=== PATIENT | male | born 1960 | race Caucasian/White ===

== ENCOUNTER 2018-09-07 11:43 | Inpatient (IN) | payer OTHER ==
[2018-09-07 12:51] VITALS: BMI 41.6
--- NOTE | 2018-09-07 16:14 | HP ---
CIWA Score Nausea/Vomitin-No Nausea/No Vomiting Muscle Tremors: 3 Anxiety: 3 Agitation: 4-Moderately Restless Paroxysmal Sweats: No Perspiration Orientation: 1-Uncertain about Date Tacttile Disturbances: 0-None Auditory Disturbances: 0-None Visual Disturbances: 0-None Headache: 3-Moderate CIWA-Ar Total Score: 14 - Admission Criteria OASAS Guidelines: Admission for Medically Managed Detox: Requires at least one of the followin. CIWA greater than 12 2. Seizures within the past 24 hours 3. Delirium tremens within the past 24 hours 4. Hallucinations within the past 24 hours 5. Acute intervention needed for co occurring medical disorder 6. Acute intervention needed for co occurring psychiatric disorder 7. Severe withdrawal that cannot be handled at a lower level of care (continued vomiting, continued diarrhea, abnormal vital signs) requiring intravenous medication and/or fluids 8. Admission ROS [facility] Chief Complaint: ETOH WITHDRAWAL SYMPTOMS/ CRACK COCAINE DEPENDENCE. History of Present Illness: PATIENT PRESENTS FOR DETOX FROM ETOH AND COCAINE DEPENDENCE. PATIENT STARTED DRINKING AT AGE 13. DRINKS 8 18 OUNCES OF BEER DAILY. LAST DRINK EARLY THIS AFTERNOON. PATIENT ALSO SMOKES ONE GRAM OF CRACK/COCAINE. LAST TIME HE SMOKED WAS 5 DAYS AGO. PATIENT DENIES HX SEIZURES, BLACKOUTS AND FALLS. PATIENT ATTEMPTED DETOX IN 1983. THIS IS PATIENT FIRST TIME ADMISSION TO [facility]. PATIENT PMH INCLUDES ANXIETY, PANIC ATTACKS, HTN, OBESITY, PSORIASIS (NON-CONTAGIOUS), COLORECTAL CANCER ( 2 YEARS AGO) AND COLOSTOMY BAG. DENIES SI/HI AND SUICIDE ATTEMPTS. PATIENT STATES HE TAKES KLONIPIN AND OXYCODONE ONLY NEEDED. UDS NEGATIVE. PATIENT AWARE HE WILL NOT RECEIVE THESE MEDICATIONS ON UNIT AND IS IN AGREEMENT WITH PLAN OF CARE. Others' Prescriptions Patient Name: Hansel Sheets Date: 1960 Address: [place] [address] Sex: Male Rx Written Rx Dispensed Drug Quantity Days Supply Prescriber Name 08/01/2018 09/06/2018 clonazepam 1 mg tablet 90 30 TarleCan 07/28/2018 07/28/2018 oxycodone hcl 10 mg tablet 90 30 [place], Haydee 07/11/2018 07/26/2018 clonazepam 1 mg tablet 90 30 TarleCan 06/14/2018 06/15/2018 clonazepam 1 mg tablet 90 30 TarleCan 05/16/2018 05/17/2018 clonazepam 1 mg tablet 90 30 Tarle, Can 04/18/2018 04/19/2018 clonazepam 1 mg tablet 90 30 Tarle, Can 03/16/2018 03/22/2018 clonazepam 1 mg tablet 90 30 Tarle, Can 03/03/2018 03/09/2018 hydromorphone 2 mg tablet 30 30 Marsha Betts) 02/13/2018 02/22/2018 clonazepam 1 mg tablet 90 30 Tarle, Can Exam Limitations: No Limitations - Ebola screening Have you traveled outside of the country in the last 21 days: No Have you had contact with anyone from an Ebola affected area: No Have you been sick,other than usual withdrawal symptoms: No Do you have a fever: No - Review of Systems Constitutional: Night Sweats, Changes in sleep EENT: reports: Recent change in vision ([place]) Respiratory: reports: Cough (DRY COUGH) Cardiac: reports: No Symptoms Reported GI: reports: Nausea, Poor Fluid Intake, Other (COLOSTOMY BAG) : reports: No Symptoms Reported Musculoskeletal: reports: Back Pain, Joint Pain, Muscle Pain Integumentary: reports: Rash, Sweating, Other (PSORIASIS- GENERALIZED) Neuro: reports: Headache, Tremors, Unsteady Gait Endocrine: reports: [place] Hematology: reports: No Symptoms Reported Psychiatric: reports: Anxious, Depressed Patient History - Patient Medical History Hx Anemia: No Hx Asthma: No Hx Chronic Obstructive Pulmonary Disease (COPD): No Hx Cancer: Yes (COLORECTAL CANCER 2016) Hx Cardiac Disorders: No Hx Congestive Heart Failure: No Hx Hypertension: Yes (on meds.) Hx Hypercholesterolemia: No Hx Pacemaker: No HX Cerebrovascular Accident: No Hx Seizures: No Hx Dementia: No Hx Diabetes: No Hx Gastrointestinal Disorders: Yes (colorectal CA Pt has a colostomy since 2016) Hx Liver Disease: No Hx Genitourinary Disorders: No Hx Sexually Transmitted Disorders: No Hx Renal Disease (ESRD): No Hx Thyroid Disease: No Hx Human Immunodeficiency Virus (HIV): No (REFUSED TESTING) Hx Hepatitis C: No Hx Depression: Yes Hx Suicide Attempt: No Hx Bipolar Disorder: No Hx Schizophrenia: No - Patient Surgical History Past Surgical History: Yes Hx Abdominal Surgery: Yes (colon resection in 2015) Anesthesia Reaction: No - PPD History Previous Implant?: Yes Documented Results: Negative w/o proof Implanted On Prior [facility] Admission?: No PPD to be Administered?: Yes - Smoking Cessation Smoking history: Current every day smoker Have you smoked in the past 12 months: Yes Aproximately how many cigarettes per day: 20 Hx Chewing Tobacco Use: No Initiated information on smoking cessation: Yes 'Breaking Loose' booklet given: 09/07/18 - Substance & Tx. History Hx Alcohol Use: Yes Hx Substance Use: Yes Substance Use Type: Alcohol, Cocaine Hx Substance Use Treatment: Yes - Substances Abused Alcohol Route: Oral Frequency: Daily Amount used: 10-12 18 oz beers Age of first use: 13 Date of Last Use: 09/07/18 Crack Route: Smoking Frequency: Daily Amount used: 1 gram Age of first use: 43 Date of Last Use: 08/31/18 Family Disease History - Family Disease History Family History: Denies Admission Physical Exam [facility] - Vital Signs Vital Signs: Vital Signs - 24 hr 09/07/18 12:49 Temperature 96.8 F L Pulse Rate 78 Respiratory 18 Rate Blood Pressure 139/79 - Physical General Appearance: Yes: Disheveled, Obese, Tremorous, Sweating, Anxious HEENTM: Yes: EOMI, Hearing grossly Normal, Normocephalic, Normal Voice, RYAN, Pharynx Normal Respiratory: Yes: Chest Non-Tender, Lungs Clear, Normal Breath Sounds, No Respiratory Distress, No Accessory Muscle Use Neck: Yes: No masses,lesions,Nodules, Supple Breast: Yes: Breast Exam Deferred Cardiology: Yes: Regular Rhythm, Regular Rate, S1, S2 Abdominal: Yes: Normal Bowel Sounds, Non Tender, Soft, Other (+ COLOSTOMY BAG) Genitourinary: Yes: Within Normal Limits Back: Yes: Normal Inspection, Muscle Spasm Musculoskeletal: Yes: full range of Motion, Back pain, Muscle Pain, Other ( AMBULATES WITH CANE) Extremities: Yes: Normal Range of Motion, Non-Tender, Tremors Neurological: Yes: pipeline engineer II-XII NML intact, Alert, Normal Response, Other (ANXIOUS ) Integumentary: Yes: Warm, Erythema, Moist, Rash Lymphatic: Yes: Within Normal Limits - Diagnostic (1) Anxiety Current Visit: Yes Status: Chronic (2) Alcohol dependence with uncomplicated withdrawal Current Visit: Yes Status: Acute (3) Colostomy status Current Visit: Yes Status: Chronic (4) Obesity Current Visit: Yes Status: Chronic Qualifiers: Obesity type: unspecified obesity type (5) Psoriasis Current Visit: Yes Status: Chronic (6) HTN (hypertension) Current Visit: Yes Status: Chronic Qualifiers: Hypertension type: essential hypertension Qualified Code(s): I10 - Essential (primary) hypertension Cleared for Admission [facility] - Detox or Rehab [facility] Level of Care: Medically Managed Detox Regimen/Protocol: Librium S Breath Alcohol Content Breath Alcohol Content: 0.019 Urine Drug Screen - Results Drug Screen Negative: Yes
[2018-09-07] MEDS ORDERED: MENTHOL/PHENOL 1 EACH UD MM PRN (17:04)
[2018-09-07] MEDS ORDERED: NICOTINE POLACRILEX 2 MG GUM BC PRN (17:04)
[2018-09-07] MEDS ORDERED: MAGNESIUM CITRATE 300 ML BOTTLE PO PRN (17:04)
[2018-09-07] MEDS ORDERED: ACETAMINOPHEN 325 MG TABLET (FP) PO PRN (17:04)
[2018-09-07] MEDS ORDERED: hydrOXYzine PAMOATE 50 MG CAPSULE (FP) PO PRN (17:04)
[2018-09-07] MEDS ORDERED: guaiFENesin/D-METHORPHAN HB 10 ML UNIT-DOSE CUPS PO PRN (17:04)
[2018-09-07] MEDS ORDERED: MAG HYDROX/AL HYDROX/SIMETH 30 ML UNIT-DOSE CUP PO PRN (17:04)
[2018-09-07] MEDS ORDERED: P-EPHED 60MG/TRIPROLIDI 2.5MG TABLET PO PRN (17:04)
[2018-09-07] MEDS ORDERED: LOPERAMIDE HCL 2 MG CAPSULE PO PRN (17:04)
[2018-09-07] MEDS ORDERED: MAGNESIUM HYDROX 2400MG/30ML ORAL SUSPENSION 30 ML CUP PO PRN (17:04)
[2018-09-07] MEDS: chlordiazePOXIDE HCL 25 MG CAPSULE PO PRN (19:09)
[2018-09-07] MEDS ORDERED: MELATONIN 5 MG TABLETS PO PRN (22:00)
[2018-09-07] MEDS ORDERED: HYDROCORTISONE 0.5% TOPICAL OINTMENT TUBE TP SCH (22:00)
[2018-09-07 22:24] LABS: URINE APPEARANCE CLEAR; URINE BILIRUBIN NEGATIVE (<2.0 mg/dL); URINE COLOR LTYELLOW; URINE GLUCOSE (UA) NEGATIVE (NEGATIVE); URINE KETONE NEGATIVE (NEGATIVE); URINE LEUK ESTERASE NEGATIVE (NEGATIVE); URINE NITRITE NEGATIVE (NEGATIVE); URINE PROTEIN NEGATIVE (NEGATIVE); URINE UROBILINOGEN NEGATIVE mg/dL (0.2-1.0)
[2018-09-07] MEDS: THIAMINE HCL 100 MG TABLET (FP) PO SCH (22:40)
[2018-09-07] MEDS: chlordiazePOXIDE HCL 25 MG CAPSULE PO SCH (22:40)
[2018-09-08] MEDS: chlordiazePOXIDE HCL 25 MG CAPSULE PO SCH ×4 (05:55→22:19)
--- NOTE | 2018-09-08 08:55 | EKG ---
Test Reason : Blood Pressure : / mmHG Vent. Rate : 083 BPM Atrial Rate : 083 BPM P-R Int : 162 ms QRS Dur : 102 ms QT Int : 376 ms P-R-T Axes : 033 -28 017 degrees QTc Int : 441 ms NORMAL SINUS RHYTHM POSSIBLE ANTERIOR INFARCT , AGE UNDETERMINED ABNORMAL ECG NO PREVIOUS ECGS AVAILABLE Confirmed by TIFFANY CACERES MD ([id number]) on 09/08/2018 8:55:08 AM Referred By: Confirmed By:TIFFANY CACERES MD
[2018-09-08 10:06] LABS: HEMATOCRIT 43.9 % (35.4-49); HEMOGLOBIN 14.6 GM/dL (11.7-16.9); MCH 31.2 pg (25.7-33.7); MCHC 33.2 g/dl (32.0-35.9); PLATELET COUNT 162 K/MM3 (134-434); RBC 4.67 M/mm3 (4.00-5.60); RDW 13.9 % (11.9-15.9); WHITE BLOOD COUNT 4.9 K/mm3 (4.0-10.0)
[2018-09-08] MEDS: HYDROCORTISONE 0.5% TOPICAL OINTMENT TUBE TP SCH ×2 (10:28→22:18)
[2018-09-08] MEDS: PRENATAL VITAMINS W/ FOLIC ACID TABLET (FP) PO SCH (10:29)
[2018-09-08] MEDS: NICOTINE 21 MG/24 HOURS TOPICAL PATCH TD SCH (10:31)
[2018-09-08 11:54] LABS: ALBUMIN 3.6 g/dl (3.4-5.0); ALK PHOS 110 U/L (45-117); ANION GAP 9 MMOL/L (8-16); BILIRUBIN,TOTAL 0.3 mg/dL (0.2-1); BLOOD UREA NITROGEN 15 mg/dL (7-18); CALCIUM 8.3 mg/dL (8.5-10.1); CHLORIDE 102 mmol/L (98-107); CO2 29 mmol/L (21-32); CREATININE 1.4 mg/dL (0.55-1.3); GLUCOSE,RANDOM 113 mg/dL (74-106); POTASSIUM 4.6 mmol/L (3.5-5.1); SGOT/AST 31 U/L (15-37); SODIUM 140 mmol/L (136-145); TOT PROT 7.2 g/dl (6.4-8.2)
[2018-09-08] MEDS: chlordiazePOXIDE HCL 25 MG CAPSULE PO PRN ×2 (12:37→19:27)
--- NOTE | 2018-09-08 13:48 | CONSULT ---
[facility] Psychiatric Consult - Data Date of interview: 09/08/18 Admission source: [facility] Identifying data: First admission to [facility] for this 57 y/o male seeking detoxification treatment, on , for cocaine (crack) and alcohol dependence. Patient is single, no children, domiciled, unemployed and supported on [facility] benefits. Substance Abuse History: Confirmed by the patient in this interview. Details in current [facility] report : Smoking history: Current every day smoker. Have you smoked in the past 12 months: Yes. Aproximately how many cigarettes per day: 20. Hx Chewing Tobacco Use: No. Initiated information on smoking cessation: Yes. 'Breaking Loose' booklet given: 09/07/18. - Substance & Tx. History. Hx Alcohol Use: Yes. Hx Substance Use: Yes. Substance Use Type: Alcohol, Cocaine. Hx Substance Use Treatment: Yes. - Substances Abused. Alcohol. Route: Oral. Frequency: Daily. Amount used: 10-12 18 oz beers. Age of first use: 13. Date of Last Use: 09/07/18. Crack. Route: Smoking. Frequency: Daily. Amount used: 1 gram. Age of first use: 43. Date of Last Use: 08/31/18 Medical History: Remarkable for treatment for colorectal cancer (resection of colon : carries a colostomy bag), hypertension, obesity, arthritis and psoriasis. Patient ambulates with a cane. Psychiatric History: Patient endorses a history of multiple psychiatric hospitalizations ([facility] in [facility], [facility], [facility] in [place], [place]). Diagnosed with Schizoaffective Disorder. Maintained on a regimen of clonazepam, valproate, risperdal, quetiapine, gabapentin and bupropion. Mr Sheets is followed by a private psychiatrist, Dr Can Salmon, in [place], [place]. Patient denies history of suicide attempts. Physical/Sexual Abuse/Trauma History: Patient denies. Additional Comment: Drug Screen is negative. Mental Status Exam - Mental Status Exam Alert and Oriented to: Time, Place, Person Cognitive Function: Good Patient Appearance: Unkempt, Disheveled (obese ; covered with disseminated lesions of psoriasis) Mood: Apprehensive, Hopeful Affect: Mood Congruent Patient Behavior: Talkative (good and clear historian), Appropriate, Cooperative Speech Pattern: Clear, Excessive Voice Loudness: Normal Thought Process: Goal Oriented Hallucinations: Denies Suicidal Ideation: Denies Homicidal Ideation: Denies Insight/Judgement: Fair Sleep: Well Appetite: Good Muscle strength/Tone: Normal Gait/Station: Other (walks with a limp ; uses a cane) Psychiatric Findings - Problem List ([place] 1, 2,3) (1) Alcohol dependence with uncomplicated withdrawal Current Visit: Yes Status: Acute (2) Nicotine dependence Current Visit: Yes Status: Chronic (3) Schizoaffective disorder Current Visit: Yes Status: Chronic Qualifiers: Schizoaffective disorder type: bipolar Qualified Code(s): F25.0 - Schizoaffective disorder, bipolar type Comment: As per self-report. On medications. (4) Anxiety disorder Current Visit: Yes Status: Acute Comment: As per self-report. On medications. (5) Substance induced mood disorder Current Visit: Yes Status: Acute - Initial Treatment Plan Initial Treatment Plan: Psychoeducation. Sleep hygiene. Detoxification. Psychotherapy (group, supportive). AA meetings. Relapse prevention measures are discussed with the patient. Medications reconciled : depakote 500 mg po bid + wellbutrin XL 150 mg po daily + risperdal 2 mg po hs (reduced) + gabapentin 300 mg po tid. Side effects/benefits of each drug are discussed with the patient. Mr Sheets is in agreement with this plan of care. Valproic acid level : pending. Will follow. Observation.
--- NOTE | 2018-09-08 14:25 | PN ---
S CIWA - CIWA Score Nausea/Vomitin Muscle Tremors: 4-Moderate,w/Arms Extend Anxiety: 4-Mod. Anxious/Guarded Agitation: 2 Paroxysmal Sweats: 3 Orientation: 0-Oriented Tacttile Disturbances: 1-Very Mild Itch/Numbness Auditory Disturbances: 0-None Visual Disturbances: 0-None Headache: 0-None Present CIWA-Ar Total Score: 16 BHS Progress Note (SOAP) Subjective: Interrupted sleep, weird dreams, sweating, headache Objective: 09/08/18 14:21 Last Vital Signs Temp Pulse Resp BP Pulse Ox 97.2 F L 86 20 124/77 09/08/18 06:46 09/08/18 06:46 09/08/18 06:46 09/08/18 06:46 Laboratory Tests 09/07/18 09/08/18 09/08/18 20:40 06:30 06:30 WBC 4.9 RBC 4.67 Hgb 14.6 Hct 43.9 MCV 94.0 MCH 31.2 MCHC 33.2 RDW 13.9 Plt Count 162 MPV 10.0 Sodium 140 Potassium 4.6 Chloride 102 Carbon Dioxide 29 Anion Gap 9 BUN 15 Creatinine 1.4 H Creat Clearance w eGFR 52.05 Random Glucose 113 H Calcium 8.3 L Total Bilirubin 0.3 AST 31 ALT TNP Alkaline Phosphatase 110 Total Protein 7.2 Albumin 3.6 Urine Color Ltyellow Urine Appearance Clear Urine pH 6.0 Ur Specific [place] 1.010 Urine Protein Negative Urine Glucose (UA) Negative Urine Ketones Negative Urine Blood Negative Urine Nitrite Negative Urine Bilirubin Negative Urine Urobilinogen Negative Ur Leukocyte Esterase Negative RPR Titer 09/08/18 06:30 WBC RBC Hgb Hct MCV MCH MCHC RDW Plt Count MPV Sodium Potassium Chloride Carbon Dioxide Anion Gap BUN Creatinine Creat Clearance w eGFR Random Glucose Calcium Total Bilirubin AST ALT Alkaline Phosphatase Total Protein Albumin Urine Color Urine Appearance Urine pH Ur Specific [place] Urine Protein Urine Glucose (UA) Urine Ketones Urine Blood Urine Nitrite Urine Bilirubin Urine Urobilinogen Ur Leukocyte Esterase RPR Titer Nonreactive Labs reviewed: serum creatinine 1.4, GFR 52.05 Assessment: 09/08/18 14:24 Withdrawal symptoms Noted with HAN Plan: Continue detox HAN: encouraged PO water intake, repeat serum creatinine and bun
[2018-09-08] MEDS: GABAPENTIN 300 MG CAPSULE (FP) PO SCH ×2 (15:08→22:18)
[2018-09-08] MEDS ORDERED: risperiDONE 3 MG TABLET PO SCH (22:00)
[2018-09-08] MEDS: THIAMINE HCL 100 MG TABLET (FP) PO SCH (22:18)
[2018-09-08] MEDS: DIVALPROEX NA *ER* EXTEND REL 500 MG TABLET.SA (FP) PO SCH (22:18)
[2018-09-08] MEDS: risperiDONE 2 MG TABLET PO SCH (22:19)
[2018-09-09] MEDS: chlordiazePOXIDE HCL 25 MG CAPSULE PO PRN ×2 (03:04→13:50)
[2018-09-09] MEDS: GABAPENTIN 300 MG CAPSULE (FP) PO SCH ×3 (05:36→22:37)
[2018-09-09] MEDS: chlordiazePOXIDE HCL 25 MG CAPSULE PO SCH ×3 (05:37→17:07)
[2018-09-09] MEDS: HYDROCORTISONE 0.5% TOPICAL OINTMENT TUBE TP SCH ×2 (10:31→22:38)
[2018-09-09] MEDS: NICOTINE 21 MG/24 HOURS TOPICAL PATCH TD SCH (10:31)
[2018-09-09] MEDS: PRENATAL VITAMINS W/ FOLIC ACID TABLET (FP) PO SCH (10:32)
[2018-09-09] MEDS: DIVALPROEX NA *ER* EXTEND REL 500 MG TABLET.SA (FP) PO SCH ×2 (10:32→22:37)
[2018-09-09 11:05] LABS: CREATININE 1.1 mg/dL (0.55-1.3)
--- NOTE | 2018-09-09 13:02 | PN ---
[facility] CIWA - CIWA Score Nausea/Vomitin-No Nausea/No Vomiting Muscle Tremors: None Anxiety: 3 Agitation: 0-Normal Activity Paroxysmal Sweats: 3 Orientation: 0-Oriented Tacttile Disturbances: 3-Moderate Itch/Numb/Burn Auditory Disturbances: 0-None Visual Disturbances: 0-None Headache: 0-None Present CIWA-Ar Total Score: 9 S Progress Note (SOAP) Subjective: PATIENT C/O ITCHING BURNING OF SKIN/FEET, ANXIETY, INTERRUPTED SLEEP AND SWEATING. Objective: 09/09/18 13:00 Vital Signs Temperature 98.6 F 09/09/18 09:09 Pulse Rate 80 09/09/18 09:09 Respiratory Rate 18 09/09/18 09:09 Blood Pressure 113/68 09/09/18 09:09 O2 Sat by Pulse Oximetry (%) Laboratory Tests 09/07/18 09/08/18 09/08/18 20:40 06:30 06:30 WBC 4.9 RBC 4.67 Hgb 14.6 Hct 43.9 MCV 94.0 MCH 31.2 MCHC 33.2 RDW 13.9 Plt Count 162 MPV 10.0 Sodium 140 Potassium 4.6 Chloride 102 Carbon Dioxide 29 Anion Gap 9 BUN 15 Creatinine 1.4 H Creat Clearance w eGFR 52.05 Random Glucose 113 H Calcium 8.3 L Total Bilirubin 0.3 AST 31 ALT TNP Alkaline Phosphatase 110 Total Protein 7.2 Albumin 3.6 Urine Color Ltyellow Urine Appearance Clear Urine pH 6.0 Ur Specific [place] 1.010 Urine Protein Negative Urine Glucose (UA) Negative Urine Ketones Negative Urine Blood Negative Urine Nitrite Negative Urine Bilirubin Negative Urine Urobilinogen Negative Ur Leukocyte Esterase Negative Valproic Acid RPR Titer 09/08/18 09/09/18 09/09/18 06:30 08:00 08:00 WBC RBC Hgb Hct MCV MCH MCHC RDW Plt Count MPV Sodium Potassium Chloride Carbon Dioxide Anion Gap BUN 13 Creatinine 1.1 Creat Clearance w eGFR Random Glucose Calcium Total Bilirubin AST ALT Alkaline Phosphatase Total Protein Albumin Urine Color Urine Appearance Urine pH Ur Specific [place] Urine Protein Urine Glucose (UA) Urine Ketones Urine Blood Urine Nitrite Urine Bilirubin Urine Urobilinogen Ur Leukocyte Esterase Valproic Acid 6.6 L RPR Titer Nonreactive PE: SKIN +PSORIASIS, WARM, MILD SWEATINESS ALERT AND ORIENTED X 3 EXT FULL ROM, AMB WITH CANE ANXIOUS Assessment: 09/09/18 13:01 WITHDRAWAL SX Plan: CONTINUE DETOX ENCOURAGE ORAL FLUIDS CONTINUE TO MONITOR CLINICALLY
--- NOTE | 2018-09-09 18:17 | PN ---
[facility] Progress Note Note: Psychiatry Attending's delayed note (follow-up) : Met with the patient,earlier, during daytime. At issue : dosage of medications. Mr Sudeep is requesting his " full dose " of seroquel. He authorized MD to contact his pharmacy in [facility]. Parts Remover called [facility] at [phone]. Spoke to pharmacist. List of medications as follows : Seroquel 25 mg po bid + 400 mg po hs Risperdal 3 mg po am + 4 mg po hs Depakote ER 500 mg po bid Gabapentin 300 mg po QID Inderal 10 mg po daily Klonopin 1 mg po tid Wellbutrin SR 150 mg po bid Most recent refills were picked up by patient. On 09/06/18. Confirmed by Mr Sheets in this session. In view of concomitant detoxification regimen, OVERSEDATION represents a significant concern. Will adopt a modified regimen as follows : seroquel 200 mg po hs (reduced). Will titrate if no sedation. risperdal 2 mg po bid (reduced) gabapentin 300 mg po tid wellbutrin XL 150 mg po daily depakote 500 mg po bid. Of note, VA level = 6.6 (09/09/18). Clear indication of NON-ADHERENCE. Will follow.
[2018-09-09] MEDS: risperiDONE 2 MG TABLET PO SCH (22:37)
[2018-09-09] MEDS: QUEtiapine FUMARATE 200 MG TABLET PO SCH (22:37)
[2018-09-09] MEDS: THIAMINE HCL 100 MG TABLET (FP) PO SCH (22:37)
[2018-09-09] MEDS: chlordiazePOXIDE 5 MG CAPSULE PO SCH (22:38)
[2018-09-09] MEDS: IBUPROFEN 400 MG TABLET (FP) PO PRN (22:40)
[2018-09-10] MEDS: GABAPENTIN 300 MG CAPSULE (FP) PO SCH ×3 (06:54→22:11)
[2018-09-10] MEDS: chlordiazePOXIDE 5 MG CAPSULE PO SCH ×3 (06:54→17:36)
[2018-09-10] MEDS ORDERED: IBUPROFEN 400 MG TABLET (FP) PO ONE (10:03)
[2018-09-10] MEDS: DIVALPROEX NA *ER* EXTEND REL 500 MG TABLET.SA (FP) PO SCH ×2 (10:34→22:10)
[2018-09-10] MEDS: NICOTINE 21 MG/24 HOURS TOPICAL PATCH TD SCH (10:34)
[2018-09-10] MEDS: HYDROCORTISONE 0.5% TOPICAL OINTMENT TUBE TP SCH ×2 (10:34→22:13)
[2018-09-10] MEDS: PRENATAL VITAMINS W/ FOLIC ACID TABLET (FP) PO SCH (10:34)
[2018-09-10] MEDS: chlordiazePOXIDE HCL 25 MG CAPSULE PO PRN (14:45)
--- NOTE | 2018-09-10 15:55 | PN ---
[facility] Progress Note (SOAP) Subjective: Headache (pain scale 7/10), interrupted sleep Objective: 09/10/18 15:54 Last Vital Signs Temp Pulse Resp BP Pulse Ox 97.4 F L 76 18 113/71 09/10/18 13:22 09/10/18 13:22 09/10/18 13:22 09/10/18 13:22 Laboratory Tests 09/07/18 09/08/18 09/08/18 20:40 06:30 06:30 WBC 4.9 RBC 4.67 Hgb 14.6 Hct 43.9 MCV 94.0 MCH 31.2 MCHC 33.2 RDW 13.9 Plt Count 162 MPV 10.0 Sodium 140 Potassium 4.6 Chloride 102 Carbon Dioxide 29 Anion Gap 9 BUN 15 Creatinine 1.4 H Creat Clearance w eGFR 52.05 Random Glucose 113 H Calcium 8.3 L Total Bilirubin 0.3 AST 31 ALT TNP Alkaline Phosphatase 110 Total Protein 7.2 Albumin 3.6 Urine Color Ltyellow Urine Appearance Clear Urine pH 6.0 Ur Specific [place] 1.010 Urine Protein Negative Urine Glucose (UA) Negative Urine Ketones Negative Urine Blood Negative Urine Nitrite Negative Urine Bilirubin Negative Urine Urobilinogen Negative Ur Leukocyte Esterase Negative Valproic Acid RPR Titer 09/08/18 09/09/18 09/09/18 06:30 08:00 08:00 WBC RBC Hgb Hct MCV MCH MCHC RDW Plt Count MPV Sodium Potassium Chloride Carbon Dioxide Anion Gap BUN 13 Creatinine 1.1 Creat Clearance w eGFR Random Glucose Calcium Total Bilirubin AST ALT Alkaline Phosphatase Total Protein Albumin Urine Color Urine Appearance Urine pH Ur Specific [place] Urine Protein Urine Glucose (UA) Urine Ketones Urine Blood Urine Nitrite Urine Bilirubin Urine Urobilinogen Ur Leukocyte Esterase Valproic Acid 6.6 L RPR Titer Nonreactive Labs reviewed Assessment: 09/10/18 15:54 Withdrawal symptoms Plan: Continue detox Encouraged PO water intake
[2018-09-10] MEDS: IBUPROFEN 400 MG TABLET (FP) PO PRN (18:13)
[2018-09-10] MEDS: THIAMINE HCL 100 MG TABLET (FP) PO SCH (22:10)
[2018-09-10] MEDS: chlordiazePOXIDE HCL 10 MG CAPSULE PO SCH (22:10)
[2018-09-10] MEDS: QUEtiapine FUMARATE 200 MG TABLET PO SCH (22:11)
[2018-09-10] MEDS: risperiDONE 2 MG TABLET PO SCH (22:11)
[2018-09-11] MEDS: chlordiazePOXIDE HCL 10 MG CAPSULE PO SCH ×2 (05:39→10:22)
[2018-09-11] MEDS: GABAPENTIN 300 MG CAPSULE (FP) PO SCH ×2 (05:39→14:17)
[2018-09-11] MEDS: DIVALPROEX NA *ER* EXTEND REL 500 MG TABLET.SA (FP) PO SCH (10:20)
[2018-09-11] MEDS: HYDROCORTISONE 0.5% TOPICAL OINTMENT TUBE TP SCH (10:20)
--- NOTE | 2018-09-11 10:20 | DS ---
[facility] Detox Discharge Summary Admission Date: 09/07/18 Discharge Date: 09/11/18 - History Present History: Alcohol Dependence Additional Comments: 57 years old male admitted on 09/07/18 for alcohol withdrawal sx completed alcohol detox regimen tolerated well - Physical Exam Results Vital Signs: Vital Signs Temperature 97.7 F 09/11/18 09:20 Pulse Rate 77 09/11/18 09:20 Respiratory Rate 18 09/11/18 09:20 Blood Pressure 91/56 L 09/11/18 09:20 O2 Sat by Pulse Oximetry (%) Pertinent Admission Physical Exam Findings: alcohol withdrawal sx Vital Signs Temperature 97.7 F 09/11/18 09:20 Pulse Rate 77 09/11/18 09:20 Respiratory Rate 18 09/11/18 09:20 Blood Pressure 91/56 L 09/11/18 09:20 O2 Sat by Pulse Oximetry (%) Laboratory Last Values WBC 4.9 K/mm3 (4.0-10.0) 09/08/18 06:30 RBC 4.67 M/mm3 (4.00-5.60) 09/08/18 06:30 Hgb 14.6 GM/dL (11.7-16.9) 09/08/18 06:30 Hct 43.9 % (35.4-49) 09/08/18 06:30 MCV 94.0 fl (80-96) 09/08/18 06:30 MCH 31.2 pg (25.7-33.7) 09/08/18 06:30 MCHC 33.2 g/dl (32.0-35.9) 09/08/18 06:30 RDW 13.9 % (11.9-15.9) 09/08/18 06:30 Plt Count 162 K/MM3 (134-434) 09/08/18 06:30 MPV 10.0 fl (7.5-11.1) 09/08/18 06:30 Sodium 140 mmol/L (136-145) 09/08/18 06:30 Potassium 4.6 mmol/L (3.5-5.1) 09/08/18 06:30 Chloride 102 mmol/L (98-107) 09/08/18 06:30 Carbon Dioxide 29 mmol/L (21-32) 09/08/18 06:30 Anion Gap 9 MMOL/L (8-16) 09/08/18 06:30 BUN 13 mg/dL (7-18) 09/09/18 08:00 Creatinine 1.1 mg/dL (0.55-1.3) 09/09/18 08:00 Creat Clearance w eGFR 52.05 (>60) 09/08/18 06:30 Random Glucose 113 mg/dL (74-106) H 09/08/18 06:30 Calcium 8.3 mg/dL (8.5-10.1) L 09/08/18 06:30 Total Bilirubin 0.3 mg/dL (0.2-1) 09/08/18 06:30 AST 31 U/L (15-37) 09/08/18 06:30 ALT TNP 09/08/18 06:30 Alkaline Phosphatase 110 U/L (45-117) 09/08/18 06:30 Total Protein 7.2 g/dl (6.4-8.2) 09/08/18 06:30 Albumin 3.6 g/dl (3.4-5.0) 09/08/18 06:30 Urine Color Ltyellow 09/07/18 20:40 Urine Appearance Clear 09/07/18 20:40 Urine pH 6.0 (5.0-8.0) 09/07/18 20:40 Ur Specific [place] 1.010 (1.010-1.035) 09/07/18 20:40 Urine Protein Negative (NEGATIVE) 09/07/18 20:40 Urine Glucose (UA) Negative (NEGATIVE) 09/07/18 20:40 Urine Ketones Negative (NEGATIVE) 09/07/18 20:40 Urine Blood Negative (NEGATIVE) 09/07/18 20:40 Urine Nitrite Negative (NEGATIVE) 09/07/18 20:40 Urine Bilirubin Negative (<2.0 mg/dL) 09/07/18 20:40 Urine Urobilinogen Negative mg/dL (0.2-1.0) 09/07/18 20:40 Ur Leukocyte Esterase Negative (NEGATIVE) 09/07/18 20:40 Valproic Acid 6.6 ug/ml (50-100) L 09/09/18 08:00 RPR Titer Nonreactive (NONREACTIVE) 09/08/18 06:30 lab noted - Treatment Hospital Course: Detox Protocol Followed, Detoxed Safely, Responded well, Discharged Condition Good, Rehab Referral Accepted Patient has Accepted a Rehab Referral to: Dr. Larson - Medication Discharge Medications: Ambulatory Orders Bupropion HCl [Bupropion Xl] 150 mg PO BID 09/07/18 Celecoxib [CeleBREX -] 100 mg PO BID 09/07/18 Clonazepam 1 mg PO TID 09/07/18 Divalproex Sodium [Divalproex Sodium ER] 500 mg PO BID 09/07/18 Gabapentin [Neurontin -] 300 mg PO Q8H 09/07/18 Propranolol HCl 10 mg PO DAILY 09/07/18 Quetiapine Fumarate [Seroquel -] 25 mg PO BID 09/07/18 Risperidone [Risperdal -] 3 mg PO DAILY 09/07/18 - Diagnosis (1) Alcohol dependence with uncomplicated withdrawal Current Visit: Yes Status: Acute (2) Substance induced mood disorder Current Visit: Yes Status: Suspected (3) HTN (hypertension) Current Visit: Yes Status: Chronic Qualifiers: Hypertension type: essential hypertension Qualified Code(s): I10 - Essential (primary) hypertension (4) Nicotine dependence Current Visit: Yes Status: Acute Qualifiers: Nicotine product type: cigarettes Substance use status: in withdrawal Qualified Code(s): F17.213 - Nicotine dependence, cigarettes, with withdrawal (5) Obesity Current Visit: Yes Status: Chronic Qualifiers: Obesity type: unspecified obesity type - AMA Did Patient Leave Against Medical Advice: No
[2018-09-11] MEDS: PRENATAL VITAMINS W/ FOLIC ACID TABLET (FP) PO SCH (10:21)
[2018-09-11] MEDS: NICOTINE 21 MG/24 HOURS TOPICAL PATCH TD SCH (10:24)
[2018-09-11 13:34] VITALS: BP 134/83; PULSE 80; TEMP 96.5
== END 2018-09-11 15:24 | disposition home or self-care (01) | DRG 897 ==
LOC: YASAS 11:43 → Y3N 16:56
PROC: HZ2ZZZZ Detoxification Services for Substance Abuse Treatment (ICD-10-PCS; principal; 2018-09-07)
DX: F10.230 Alcohol dependence with withdrawal, uncomplicated (principal); F14.20 Cocaine dependence, uncomplicated; N17.9 Acute kidney failure, unspecified; Z68.41 Body mass index [BMI] 40.0-44.9, adult; F17.213 Nicotine dependence, cigarettes, with withdrawal; F25.0 Schizoaffective disorder, bipolar type; F19.24 Other psychoactive substance dependence with psychoactive substance-induced mood disorder; F41.9 Anxiety disorder, unspecified; F32.9 Major depressive disorder, single episode, unspecified; I10 Essential (primary) hypertension; L40.9 Psoriasis, unspecified; E66.9 Obesity, unspecified; Z85.038 Personal history of other malignant neoplasm of large intestine; Z93.3 Colostomy status
CPT/HCPCS: 36415; 80053; 80164; 81003; 82565; 84520; 85027; 86593; 93005; 93010